=== PATIENT | female | born 1945 | race Caucasian/White ===

== ENCOUNTER 2017-02-05 22:57 | Emergency (ER) | payer MEDICARE ==
[~2017-02-05] VITALS: Ht 182.9 cm; Wt 68.0 kg
--- NOTE | ~2017-02-05 | CT71 ---
[facility] A Service of [facility] & [facility] RADIOLOGY TEXT RESULTS PATIENT: JAYCEE VIGIL LOCATION: [facility] : 47 UNIT #: [id number] AGE: [address]: LUIS LOPEZ APRN SEX: F ORDER DR: [id number] [facility] [address] [place], [place] [address] [id number] E MR#: [id number] Acc #: [id number] NAME: JAYCEE VIGIL : 1945 SEX: F STUDY DATE/TIME: 02/06/2017 00:06 UNIT: [facility] ROOM: STUDY DESCRIPTION: CT Head Wo Contrast Attending Physician: Luis Lopez Aprn Ordering Physician: Luis Lopez Aprn Primary Care Physician: Primary Care Physician No MEDICAL IMAGING REPORT This report is preliminary unless electronic signature is present EXAM Head CT 02/06 at 0006 hours. INDICATIONS Patient fell today. Hit face on rocks. Pain in the forehead with weakness and bloody nose. TECHNIQUE Axial images were obtained from base to vertex without contrast. This CT exam was performed with one or more of the following radiation dose reduction techniques: Automatic exposure control, adjustment of mA and/or kV according to patient size, and iterative reconstruction. COMPARISON No comparison. FINDINGS Ventricular size and configuration are within normal limits. There is generalized atrophy. Chronic small vessel ischemic changes are present in the white matter. No skull fractures are seen. There is soft tissue injury over the forehead. There may be an anterior nasal septal fracture. There is no acute hemorrhage. There is no acute infarct. There is a small hyperdense lesion measuring about 5 mm in size which may be within the anterior horn of the right lateral ventricle. It is adjacent to the third ventricle. This could reflect a small colloid cyst or potentially some choroid. This could also reflect some benign tissue calcification. This could be better assessed with nonemergent MRI if the patient is a candidate for MRI. IMPRESSION 1. No acute findings in the brain. No skull fracture. 2. Possible anterior nasal septal fracture. 3. 5 mm hyperdense lesion probably in the anterior horn of the right [facility] A Service of [facility] & [facility] RADIOLOGY TEXT RESULTS PATIENT: JAYCEE VIGIL LOCATION: [facility] : 47 UNIT #: [id number] AGE: [address]: LUIS LOPEZ APRN SEX: F ORDER DR: lateral ventricle. This may reflect a small colloid cyst or perhaps some choroid tissue. This could also reflect some benign soft tissue calcification. This could be better assessed with nonemergent MRI if clinically indicated. I have no basis for comparison. Dictated by... Valerio Mead Jr., M.D. THIS IS AN ELECTRONICALLY VERIFIED REPORT Valerio Mead Jr., M.D. at 02/07/2017 12:51 AM NADEEM/lidia TD: 02/06/2017 06:57 JOB #: [id number] MEDICAL IMAGING REPORT Page 1 of 1 COPY
--- NOTE | ~2017-02-05 | CT52 ---
[facility] A Service of [facility] & [facility] RADIOLOGY TEXT RESULTS PATIENT: JAYCEE VIGIL LOCATION: [facility] : 47 UNIT #: [id number] AGE: [address]: LUIS LOPEZ APRN SEX: F ORDER DR: [id number] [facility] [address] [place], [place] [address] [id number] E MR#: [id number] Acc #: [id number] NAME: JAYCEE VIGIL : 1945 SEX: F STUDY DATE/TIME: 02/06/2017 00:14 UNIT: [facility] ROOM: STUDY DESCRIPTION: CT Cervical Spine Wo Cont Attending Physician: Luis Lopez Aprn Ordering Physician: Luis Lopez Aprn Primary Care Physician: Primary Care Physician No MEDICAL IMAGING REPORT This report is preliminary unless electronic signature is present EXAM Cervical spine CT 02/06 at 0014 hours INDICATION Neck pain after falling today and hitting face on rocks. TECHNIQUE Axial images were obtained through the cervical spine without contrast. Multiplanar reformats were obtained. No comparison. This CT examination was performed with one or more of the following radiation dose reduction techniques: automatic exposure control, adjustment of mA and/or kV according to patient size, and iterative reconstruction. FINDINGS There is slight retrolisthesis of C5 relative to C4 and C6. Alignment is otherwise normal. There are no acute fractures. At C2-3, the disc is normal. At C3-4, there is hypertrophic facet arthropathy, right greater than left. No significant disc bulge is seen, but there is moderate to severe right-side foraminal stenosis with mild left foraminal stenosis due to facet disease and uncovertebral spurring. At C4-5, mild posterior broad-based disc bulge is seen and there is hypertrophic left side facet arthropathy. This results in mild left side foraminal stenosis. At C5-6, there is a larger broad-based disc osteophyte complex. This results in moderate bilateral foraminal stenosis and moderate central canal stenosis. At C6-7, there is a broad-based disc osteophyte complex which results in [facility] A Service of [facility] & [facility] RADIOLOGY TEXT RESULTS PATIENT: JAYCEE VIGIL LOCATION: [facility] : 47 UNIT #: [id number] AGE: [address]: LUIS LOPEZ APRN SEX: F ORDER DR: moderate right foraminal narrowing and mild left foraminal narrowing. No significant central stenosis. The C7-T1, the disc is within normal limits. IMPRESSION No acute fracture. 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 There is mild retrolisthesis of C5. Dictated by... Valerio Mead Jr., M.D. THIS IS AN ELECTRONICALLY VERIFIED REPORT Valerio Mead Jr., M.D. at 02/07/2017 12:51 AM NADEEM/sarah TD: 02/06/2017 07:05 JOB #: [id number] MEDICAL IMAGING REPORT Page 1 of 1 COPY
== END 2017-02-06 01:24 | disposition home or self-care (01) ==
LOC: CED 22:57
DX: S00.83XA Contusion of other part of head, initial encounter (principal); S80.212A Abrasion, left knee, initial encounter; S80.211A Abrasion, right knee, initial encounter; S50.312A Abrasion of left elbow, initial encounter; S50.311A Abrasion of right elbow, initial encounter; S60.812A Abrasion of left wrist, initial encounter; I51.9 Heart disease, unspecified; Z79.899 Other long term (current) drug therapy; W18.30XA Fall on same level, unspecified, initial encounter
CPT/HCPCS: 70450; 72125; 90471; 90715; 99283